=== PATIENT | male | born 1955 | race Caucasian/White ===

== ENCOUNTER 2021-08-17 12:21 | Emergency (ER) | payer OTHER, SELFPAY ==
--- NOTE | ~2021-08-17 | XR_ITS ---
EXAMINATION: XR CHEST CLINICAL INFORMATION: Chest pain. COMPARISON: Chest radiograph done on 07/03/2016. TECHNIQUE: 2 views of the chest were obtained. FINDINGS: Interval resolution of previously documented airspace disease at left upper lobe of the lung. Currently both lung flowers are clear except for pleural parenchymal stable disease at both lung apices. Cardiac mediastinal silhouette is within normal limit. No evidence of any pleural effusion or pneumothorax. Visualized upper abdomen is unremarkable. XR/XR chest 2V IMPRESSION: Interval resolution of left upper lobar airspace disease since 07/03/2016. No other significant change. Specifically, no radiographic evidence of pneumonia.
--- NOTE | 2021-08-17 12:31 | ECG_ITS ---
Test Reason : chest pain Blood Pressure : / mmHG Vent. Rate : 095 BPM Atrial Rate : 095 BPM P-R Int : 160 ms QRS Dur : 098 ms QT Int : 342 ms P-R-T Axes : 066 055 041 degrees QTc Int : 429 ms Normal sinus rhythm Possible Left atrial enlargement Incomplete right bundle branch block Borderline ECG When compared with ECG of 07-JAN-2012 19:40, Vent. rate has increased BY 35 BPM T wave amplitude has decreased in Anterior leads Referred By: Generic ED Physician Electronically Signed By:SOLANGE ELLIOTT
[2021-08-17 14:45] VITALS: BP 145/87; PULSE 98; RESP 20; TEMP 37.2; O2SAT 95; BMI 28.1
[2021-08-17 15:16] LABS: COVID-19 Test Positive (Negative); IDNOW Serial# 08D9AD1C
--- NOTE | 2021-08-17 18:30 | ED_ITS ---
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 Stefanie stahl tells me that his chest pain is centralized, nonradiating, dull, he tells me he can not tell that his chest or his lungs. He tells me this pain comes and goes. He is having a hard time describing the pain. has had subjective fevers, and chills. He tells me he has been feeling bad overall. He denies shortness of breath, headache, vision changes, dizziness, weakness. Patient is not vaccin ated against COVID-19. MD complaint: chest pain Onset (ago): day(s) (2) Timing of current episode: episodic Prior episodes: Yes Onset: during rest Pain location: substernal Pain radiation: none Severity: moderate Quality: tightness Relieving factors: nothing Exacerbating factors: nothing Context: recent illness (Currently COVID positive) Treatment prior to arrival: none Related Data Allergies Allergy/AdvReac Type Severity Reaction Status Date / Time No Known Allergies Allergy Unknown Unverified 04/21/20 17:19 aspirin Allergy Unknown Uncoded 05/05/19 00:00 Review of Systems Review of Systems: Constitutional : positive Fever, positive Chills, positive fatigue, positive Malaise ENT/Mouth : No sore throat, No runny nose Eyes: No Discharge Cardiovascular : positive Chest Pain, No SOB Respiratory : No Cough, No Sputum Gastrointestinal : No Nausea, No Vomiting, No Diarrhea Genitourinary : No Dysuria, No Urinary Frequency Musculoskeletal : positive Myalgia Skin : No rash Neuro : positive Headache Yes all other systems are reviewed and are negative PMFSH Past Medical History Attestation statement: The following information was validated with the patient. Source: old records reviewed and nursing notes reviewed Social History Social History Advance Directives: No Advance Directives Information Provided: No Physical Exam Vital Signs: Vital Signs: Last Vital Signs Temp 99 F 08/17/21 14:45 Pulse 98 08/17/21 14:45 Resp 20 08/17/21 14:45 BP 145/87 H 08/17/21 14:45 Pulse Ox 95 08/17/21 14:45 BMI result Body Mass Index 28.1 vss Appearance: Alert.? Oriented X3.? No acute distress.? Head: Normocephalic, atraumatic, no step-offs or deformities Eyes: Pupils equal, round and reactive to light.? ENT: Pharynx normal.? Neck: Normal inspection.? Neck supple.? CVS: Normal heart rate and rhythm.? Pulses normal.? Respiratory: No respiratory distress.? Breath sounds normal.? Abdomen: Soft and nontender.? Skin: Skin warm and dry.? Normal skin color.? Normal skin turgor.? Extremities: No lower extremity edema.? No calf ttp. 5/5 strength to bilateral upper and lower extremities Back: No midline tenderness, no C-spine tenderness, full range of motion, no CVA tenderness bilaterally Neuro: Oriented X 3.? No motor deficit.? No sensory deficit. Normal psqyme-[id number], [id number]-hnfg, normal tandem gait. Normal hand acls nurse Course Reevaluation(s) Reevaluation #1: Patient's EKG nonischemic. He is noted to be COVID positive. Labs and D-dimer pending. Patient's symptoms are likely secondary to COVID-19. Time: 18:36 Reevaluation #2: At this time 2nd troponin is pending. If his troponin is negative I suspect that patient can be discharged home. Patient's symptoms likely secondary to COVID-19. Sign out has been given to Dr. Martino. MDM - Chest Pain [facility] Narrative Medical decision making narrative: 1835 66 yo m presents to the emergency department with COVID like symptoms since yesterday. He also complains of chest pain, he is having a hard time describing this chest pain to me. He tells me does not know the chest or lungs. Not vaccinated . Physical examination benign. Patient's history and physical examination not consistent with posterior stroke, or cerebellar infarct. Medical Records Data Attestation: I reviewed the patient's medical records. Lab Data Attestation: I reviewed the patient's lab results. Result diagrams: 08/17/21 19:49 08/17/21 19:49 Labs: Lab Results 08/17/21 08/17/21 08/17/21 Range/Units 14:52 19:48 19:48 WBC (4.8-10.8) X10*3/uL RBC (4.60-5.80) X10*6/uL Hgb (14.0-18.0) g/dl Hct (42.0-52.0) % MCV (80.0-98.0) fL MCH (27.0-33.0) pg MCHC (31.0-36.0) g/dl RDW (11.0-16.0) % Plt Count (160-400) X10*3/uL MPV (9.4-12.4) fL Immature Gran % (Auto) (0.0-0.4) % Neut % (Auto) (45-73) % Lymph % (Auto) (20-40) % [place] % (Auto) (2-11) % Eos % (Auto) (0-4) % Baso % (Auto) (0-2) % Lymph # (Auto) (1.2-4.9) X10*3/uL [place] # (Auto) (0.1-1.2) X10*3/uL Eos # (Auto) (0.0-0.4) X10*3/uL Baso # (Auto) (0.0-0.2) X10*3/uL Abs Immat Gran (auto) (0.00-0.03) X10*3/uL Absolute Neuts (auto) (2.0-8.3) x10*3/uL Absolute Nucleated RBC (0.0-0.012) X10*3/uL Nucleated RBC % (auto) (0.0-0.2) /100WBC Smear Tech's Comments D-Dimer High Sensitivty < 150 NG/ML Sodium (135-145) mmol/L Potassium (3.3-5.1) mmol/L Chloride (96-108) mmol/L Carbon Dioxide (22-29) mmol/L Anion Gap (12-20) BUN (9-16) mg/dL Creatinine (0.5-1.4) mg/dL Estim Creat Clear Calc Estimated GFR Random Glucose (60-115) mg/dL Calcium (8.4-10.2) mg/dL Total Bilirubin (0.0-1.0) mg/dL AST (5-37) U/L ALT (0-40) U/L Alkaline Phosphatase (39-117) U/L Troponin I High Sens 7.6 (<3.5-35.0) ng/L Total Protein (6.5-8.0) g/dL Albumin (3.5-5.0) g/dL COVID-19 (BROCK) Positive A (Negative) COVID-19 Clin Com See Note 08/17/21 08/17/21 Range/Units 19:49 19:49 WBC 5.5 (4.8-10.8) X10*3/uL RBC 4.74 (4.60-5.80) X10*6/uL Hgb 13.9 L (14.0-18.0) g/dl Hct 41.8 L (42.0-52.0) % MCV 88.2 (80.0-98.0) fL MCH 29.3 (27.0-33.0) pg MCHC 33.3 (31.0-36.0) g/dl RDW 13.1 (11.0-16.0) % Plt Count 151 L (160-400) X10*3/uL MPV 9.5 (9.4-12.4) fL Immature Gran % (Auto) 0.4 (0.0-0.4) % Neut % (Auto) 60.5 (45-73) % Lymph % (Auto) 16.6 L (20-40) % [place] % (Auto) 22.1 H (2-11) % Eos % (Auto) 0.2 (0-4) % Baso % (Auto) 0.2 (0-2) % Lymph # (Auto) 0.9 L (1.2-4.9) X10*3/uL [place] # (Auto) 1.2 (0.1-1.2) X10*3/uL Eos # (Auto) 0.0 (0.0-0.4) X10*3/uL Baso # (Auto) 0.0 (0.0-0.2) X10*3/uL Abs Immat Gran (auto) 0.02 (0.00-0.03) X10*3/uL Absolute Neuts (auto) 3.3 (2.0-8.3) x10*3/uL Absolute Nucleated RBC 0.000 (0.0-0.012) X10*3/uL Nucleated RBC % (auto) 0.0 (0.0-0.2) /100WBC Smear Tech's Comments VERIFIED D-Dimer High Sensitivty NG/ML Sodium 135 (135-145) mmol/L Potassium 3.8 (3.3-5.1) mmol/L Chloride 101 (96-108) mmol/L Carbon Dioxide 26 (22-29) mmol/L Anion Gap 12 (12-20) BUN 18 H (9-16) mg/dL Creatinine 1.20 (0.5-1.4) mg/dL Estim Creat Clear Calc 60.2 Estimated GFR > 60 Random Glucose 93 (60-115) mg/dL Calcium 9.2 (8.4-10.2) mg/dL Total Bilirubin 0.6 (0.0-1.0) mg/dL AST 20 (5-37) U/L ALT 22 (0-40) U/L Alkaline Phosphatase 57 (39-117) U/L Troponin I High Sens (<3.5-35.0) ng/L Total Protein 7.7 (6.5-8.0) g/dL Albumin 4.4 (3.5-5.0) g/dL COVID-19 (BROCK) (Negative) COVID-19 Clin Com Imaging Data Chest x-ray: Attestation: I personally reviewed and interpreted this imaging study as follows: Radiologist's impression: XR/XR chest 2V IMPRESSION: Interval resolution of left upper lobar airspace disease since 07/03/2016. No other significant change. Specifically, no radiographic evidence of pneumonia. ECG Data ECG #1: Attestation: I personally reviewed and interpreted this ECG as follows: ECG interpretation date: 08/17/21 ECG interpretation time: 18:38 Prior ECG tracings: available for review Interpretation: Ventricular rate of 95, FL normal, QRS normal, QT/QTC normal. EKG shows normal sinus rhythm, possible left atrial enlargement, and an incomplete right bundle branch block. No ST elevations or inversions that are concerning with acute ischemia. When compared with EKG from January 07, 2012 no significant changes. Critical Care Time Critical Care Time Critical Care Time: No Discharge Plan Discharge Clinical Impression: COVID-19 Patient Disposition: Home, Self-Care Instructions: COVID-19 (Coronavirus Disease 2019) (ED) Additional Instructions: Take your medications as prescribed. If you were prescribed antibiotics today, it is important that you take your medication to their entirety, do not skip any doses, do not finish them early. Today you tested positive for COVID-19. Take Ibuprofen or Tylenol as needed for fevers or body aches. Quarantine for 7 days and ensure you wear a mask. After 7 days you should wear a mask for 3 days after that. Practice social distancing and good hand hygiene. Drink plenty of fluids. Follow-up with your primary care provider this week. Return to the emergency department with new or worsening symptoms. In case of emergency call 911 You can purchase a pulse oximeter from your local pharmacy or grocery store, and monitor your oxygen saturation if it goes below 94% you should return to the emergency department for further evaluation. If You Test Positive for COVID-19 (Isolate) Everyone, regardless of vaccination status. * Stay home for 5 days. * If you have no symptoms or your symptoms are resolving after 5 days, you can leave your house. * Continue to wear a mask around others for 5 additional days. If you have a fever, continue to stay home until your fever resolves. If You Were Exposed to Someone with COVID-19 (Quarantine) If you: Have been boosted OR Completed the primary series of Pfizer or Moderna vaccine within the last 6 months OR Completed the primary series of J&J vaccine within the last 2 months * Wear a mask around others for 10 days. * Test on day 5, if possible. If you develop symptoms get a test and stay home. If you: Completed the primary series of Pfizer or Moderna vaccine over 6?months ago and are not boosted OR Completed the primary series of J&J over 2 months ago and are not boosted OR Are unvaccinated * Stay home for 5 days. After that continue to wear a mask around others for 5 additional days. * If you can?t quarantine you must wear a mask for 10 days. * Test on day 5 if possible. If you develop symptoms get a test and stay home Referrals: Halima Maya MD [Primary Care Provider] - 2 days Stand Alone Forms: Work/School Release
[2021-08-17 19:58] LABS: Basophils Percent Auto 0.2 % (0-2); Eosinophils Percent Auto 0.2 % (0-4); Hematocrit 41.8 % (42.0-52.0); Hemoglobin 13.9 g/dl (14.0-18.0); Imm Gran Abs Auto 0.02 X10*3/uL (0.00-0.03); Imm Gran Pct Auto 0.4 % (0.0-0.4); Lymphocytes Absolute Auto 0.9 X10*3/uL (1.2-4.9); Lymphocytes Percent Auto 16.6 % (20-40); MANUAL DIFF FLAG SCAN; Mean Corpuscular HGB Conc 33.3 g/dl (31.0-36.0); Mean Corpuscular Hemoglobin 29.3 pg (27.0-33.0); Mean Corpuscular Volume 88.2 fL (80.0-98.0); Mean Platelet Volume 9.5 fL (9.4-12.4); Monocytes Absolute Auto 1.2 X10*3/uL (0.1-1.2); Monocytes Percent Auto 22.1 % (2-11); Neutrophils Absolute Auto 3.3 x10*3/uL (2.0-8.3); Neutrophils Percent Auto 60.5 % (45-73); Platelet Count 151 X10*3/uL (160-400); Red Blood Count 4.74 X10*6/uL (4.60-5.80); Red Cell Distribution Width 13.1 % (11.0-16.0); SCAN SMEAR FLAG 1; White Blood Count 5.5 X10*3/uL (4.8-10.8)
[2021-08-17 20:11] LABS: Alanine Aminotransferase 22 U/L (0-40); Albumin Level 4.4 g/dL (3.5-5.0); Alkaline Phosphatase 57 U/L (39-117); Anion Gap 12 (12-20); Aspartate Amino Transferase 20 U/L (5-37); Bilirubin Total 0.6 mg/dL (0.0-1.0); Blood Urea Nitrogen 18 mg/dL (9-16); Calcium 9.2 mg/dL (8.4-10.2); Carbon Dioxide 26 mmol/L (22-29); Chloride 101 mmol/L (96-108); Creatinine Clr Calc Pharmacy 60.2; Estimated Glomerular Filt Rate > 60; Glucose Random 93 mg/dL (60-115); Potassium 3.8 mmol/L (3.3-5.1); Sodium 135 mmol/L (135-145); Total Protein 7.7 g/dL (6.5-8.0)
[2021-08-17 20:14] LABS: Troponin-I High Sensitivity 7.6 ng/L (<3.5-35.0)
[2021-08-17 20:20] LABS: SLIDE REVIEW VERIFIED
[2021-08-17 20:23] LABS: D Dimer High Sensitivity < 150 NG/ML
[2021-08-17 21:48] VITALS: BP 139/90; PULSE 94; RESP 16; TEMP 37.1; O2SAT 94
[2021-08-17 22:18] LABS: Troponin-I High Sensitivity 9.5 ng/L (<3.5-35.0)
[2021-08-18 00:42] VITALS: BP 160/83; PULSE 103; RESP 17; TEMP 36.9; O2SAT 92
== END 2021-08-18 03:08 | disposition home or self-care (01) ==
PROVIDERS: Physician Assistant; Emergency Provider Internal Medicine; PCP Internal Medicine
DX: U07.1 COVID-19 (principal)
CPT/HCPCS: 36415; 71046; 80053; 84484; 85025; 85379; 87635; 93005; 99283; 99284

== ENCOUNTER 2021-10-05 08:09 | Outpatient (REF) | payer OTHER, SELFPAY ==
[2021-10-05 09:39] LABS: Cholesterol 191 mg/dL; HDL Cholesterol 67 mg/dL; LDL Cholesterol Calculated 114 mg/dl; Triglycerides 51 mg/dL
[2021-10-05 09:54] LABS: Prostate Specific Antigen Scr 1.87 ng/mL (<0.05-4.0); TSH reflex Free T4 1.15 uIU/mL (0.32-4.0)
[2021-10-05 10:17] LABS: Folate 17.5 ng/mL (> or = 4.0); Vitamin B12 678 pg/mL (200-900)
[2021-10-10 15:06] LABS: Testosterone, Free 56.4 pg/mL (35.0-155.0); Testosterone, Total 714 ng/dL (250-1100)
== END 2021-10-05 08:10 | disposition home or self-care (01) ==
LOC: HO.LAB 08:09
PROVIDERS: PCP Nurse Practitioner Family; Visit Provider Nurse Practitioner Family
DX: E78.00 Pure hypercholesterolemia, unspecified (principal); R07.9 Chest pain, unspecified; I10 Essential (primary) hypertension; R53.83 Other fatigue; Z12.5 Encounter for screening for malignant neoplasm of prostate
CPT/HCPCS: 36415; 80061; 82607; 82746; 84153; 84402; 84403; 84443

== ENCOUNTER → 2021-10-26 13:25 | Outpatient (BNVA) | payer OTHER, SELFPAY | PROVIDERS: PCP Nurse Practitioner Family; Referring Provider Nurse Practitioner Family; Visit Provider Internal Medicine | DX: I10 Essential (primary) hypertension (principal); R07.9 Chest pain, unspecified | CPT/HCPCS: 99202; 99212 ==

== ENCOUNTER 2022-03-12 12:00 | Emergency (ER) | payer OTHER, SELFPAY ==
[2022-03-12 13:02] VITALS: BP 125/81; PULSE 84; RESP 16; TEMP 36.3; O2SAT 96; BMI 28.2
== END 2022-03-12 14:33 | disposition left against medical advice (07) ==
PROVIDERS: Emergency Provider Emergency Medicine; PCP Nurse Practitioner Family
DX: T63.441A Toxic effect of venom of bees, accidental (unintentional), initial encounter (principal); Y92.9 Unspecified place or not applicable
CPT/HCPCS: 99281

== ENCOUNTER → 2023-10-17 08:58 | Outpatient (BNVA) | payer SELFPAY | PROVIDERS: PCP Nurse Practitioner Family; Visit Provider Physician Assistant Medical | DX: Z02.79 Encounter for issue of other medical certificate (principal) ==

== ENCOUNTER 2024-06-08 14:03 | Outpatient (AMB) | payer OTHER, SELFPAY ==
[2024-06-08 14:09] VITALS: BP 148/90; PULSE 91; O2SAT 97; BMI 29.1
--- NOTE | 2024-06-08 14:09 | A.OFFPC_ITS ---
Vital Signs 06/08/24 14:09 06/08/24 14:37 Height 5 ft 9.29 in Weight 199 lb BMI 29.1 BP 148/90 H 130/82 Blood Pressure Location Lt brachial Lt brachial Position Sitting Sitting Pulse 91 Pulse Source Pulse Oximeter Pulse Oximetry (%) 97 Oxygen Delivery Method Room Air Intake Visit Reasons: blood in urine Coal Digger Required: No Allergies No Known Allergies Allergy (Unknown, Verified 06/08/24 14:12) Medication List - Last Reconciled 06/08/24 by Denisa Fuentes PA-C amlodipine 5 mg PO DAILY multivitamin (Daily Multi-Vitamin tablet) 1 tab PO DAILY Tobacco use date assessed: 06/08/24 Fall risk assessment: No Falls in past year Last assessed Fall Risk: 06/08/24 Dental Screening Dental Screen Date: 06/08/24 HPI blood in urine HPI Details 69 year old male coming to the office fo r acute problem. Italian certified court interpreter was used for the duration of this visit. Patient states 2 days ago he was having blood in the urine which lasted for that day in spontaneously resolved. He did have suprapubic pain with the blood in the urine and is no longer having any pain. He has no other acute concerns today. [facility] Surgical History History of ankle surgery History of gastric surgery Social History Housing: House Alcohol intake: never Patient Tobacco Use Status: Former Tobacco user e-Cigarette/Vaping Use: Never Used Second Hand Smoke Exposure: No service: No Current occupational status: retired Cognitive needs: No Hearing needs: No Vision needs: Yes (glasses) Questionnaire Thrive Questionnaire Date Thrive assessed: 10/04/21 AUDIT C Alcohol Use Questionnaire (AUDIT-C) 1. How often do you have a drink containing alcohol?: Never Total Score: 0 JUANCHO-7 AMB Questionnaire JUANCHO-7 Date JUANCHO - 7 assessed: 10/04/21 Source: Developed by Drs. Piotr Guzman, Prerna Saavedra, Migue Marin and colleagues, with an educational mello from [employer]. Review of Systems Const Denies body aches, Denies chills and Denies fever(s) Eyes Reports no additional complaints ENT Reports no additional complaints Card Denies chest pain, Denies syncope, Denies leg edema, Denies lightheadedness and Denies dyspnea Resp Denies dyspnea GI Denies abdominal pain, Denies constipation, Denies diarrhea, Denies nausea and Denies vomiting Reports as per HPI Musc Reports no additional complaints Skin/Breast Reports system reviewed and no additional complaints, except as documented Neuro Reports no additional complaints and Denies syncope Physical exam (Primary Care) Vital Signs: Last Vital Signs Pulse 91 06/08/24 14:09 BP 148/90 H 06/08/24 14:09 Pulse Ox 97 06/08/24 14:09 Oxygen Delivery Method Room Air 06/08/24 14:09 BMI result Body Mass Index 29.1 Tobacco/Smoking Status: Tobacco use Status Tobacco use date assessed 06/08/24 06/08/24 14:09 Patient Tobacco Use Status Former Tobacco user 06/08/24 14:09 e-Cigarette/Vaping Use Never Used 06/08/24 14:09 Thrive Assessment: Date of Thrive Assessment Date Thrive assessed 10/04/21 06/08/24 14:09 Const General: cooperative, healthy appearing, comfortable and no acute distress Orientation/consciousness: patient oriented x3 HENMT Head: Yes normocephalic Ears: hearing grossly normal bilaterally General nose exam: Normal external nose present Eyes General: appearance normal, both eyes and all related structures Conjunctivae: conjunctivae normal Neck Neck: Yes full ROM and Yes no lymphadenopathy Resp Effort & Inspection: normal respiratory effort Auscultation: clear to auscultation bilaterally, no crackles, no rales, no rhonchi and no wheezes Cardio Rate: regular rate Rhythm: regular rhythm GI Palpation (GI): Soft to palpation, not firm, nontender, no guarding and not rigid General: Yes no CVA tenderness Back/Spine/Pelvis Back: no CVA tenderness Skin General skin exam: no rashes or lesions noted Neuro General: patient oriented x3 Gait exam (Neuro): Normal gait present Extrem General: Yes normal to inspection, Yes full ROM and No edema Psych Affect: normal affect Attitude: cooperative Insight: Good insight present (Psych) Judgement: Good judgement present (Psych) Results AMB Urinalysis, Automated UA Leukoctes 0 Selina/uL Last Edit by SILVIA Mcbride on 06/08/24 14:28 UA Nitrite Negative Last Edit by SILVIA Mcbride on 06/08/24 14:28 UA Urobilinogen 0.2 mg/dL Last Edit by Alejandra Vivas SILVIA on 06/08/24 14:28 UA Protein 0 mg/dL Last Edit by Alejandra Vivas A on 06/08/24 14:28 UA pH 6.0 Last Edit by Alejandra Vivas [facility] on 06/08/24 14:28 UA Blood 0 Vikas/uL Last Edit by Alejandra Vivas A on 06/08/24 14:28 UA Specific [place] 1.020 Last Edit by Alejandra Vivas [place] on 06/08/24 14:28 UA Ketone Negative Last Edit by Alejandra Vivas [place] on 06/08/24 14:28 UA Bilirubin 0 mg/dL Last Edit by Alejandra Vivas [facility] on 06/08/24 14:28 UA Glucose 0 mg/dL Last Edit by Alejandra Vivas [place] on 06/08/24 14:28 Coding Level of Care Code Est Pt Level 3 (88572) Diagnoses Essential hypertension I10 Hematuria R31.9 Encounter for colorectal cancer screening Z12.11; Z12.12 Assessment & Plan Assessment & Plan (1) Essential hypertension: Code(s): I10 - Essential (primary) hypertension Category: Medical Plan: Patient not currently on blood pressure management was previously on amlodipine 5 mg. On exam blood pressure was 148/90 and 130/82 when retaken. Advised patient to take blood pressures at home and reach out to the office if values are over 140/90. (2) Hematuria: Code(s): R31.9 - Hematuria, unspecified Category: Medical Plan: Hematuria has resolved at this time. Advised patient to continue to monitor her symptoms and if it returns to reach out to the office for evaluation. Urinalysis today did not show evidence of infection or blood in the urine. (3) Encounter for colorectal cancer screening: Code(s): Z12.11 - Encounter for screening for malignant neoplasm of colon; Z12.12 - Encounter for screening for malignant neoplasm of rectum Category: Medical Plan: Patient is not up-to-date with routine colonoscopy. Referral was placed today. Plan Ordered for updated blood work and advised patient to follow up in 3 months for annual exam. This note was constructed using voice recognition software. While every effort has been made to ensure accuracy and sales planner, still areas may have been included sometimes these areas may affect the content or meeting of the given symptoms. Total time spent caring for the patient today was 25 minutes. This includes time spent before the visit reviewing the chart, time spent during the visit, and time spent after the visit and documentation. Orders: Orders Free T4 (Free Thyroxine) Today Z00.00 - Encounter for general adult medical examination without abnormal findings Lipid Panel Today Z00.00 - Encounter for general adult medical examination without abnormal findings Vitamin D 25-OH (D2 and D3) Today Z00.00 - Encounter for general adult medical examination without abnormal findings AMB Urinalysis Automated Today R31.9 - Hematuria, unspecified Complete Blood Count Auto Diff Today Z00.00 - Encounter for general adult medical examination without abnormal findings Comprehensive Met. Panel Today Z00.00 - Encounter for general adult medical examination without abnormal findings PSA, Ultra Sensitive Today Z00.00 - Encounter for general adult medical examination without abnormal findings TSH reflex Free T4 Today Z00.00 - Encounter for general adult medical examination without abnormal findings Vitamin B12 and Folate Today Z00.00 - Encounter for general adult medical examination without abnormal findings Referrals Gastroenterology Referral Z12.11 - Encounter for screening for malignant neoplasm of colon Medications: Discontinued amlodipine Discontinued Reason: Patient no longer taking 5 mg PO DAILY 90 tabs 0RF
[2024-06-08 14:37] VITALS: BP 130/82
== END 2024-06-08 14:47 | disposition home or self-care (01) ==
LOC: HO.HMCH 14:03
DX: I10 Essential (primary) hypertension (principal); R31.9 Hematuria, unspecified; Z12.11 Encounter for screening for malignant neoplasm of colon; Z12.12 Encounter for screening for malignant neoplasm of rectum

== ENCOUNTER → 2024-06-08 14:03 | Outpatient (BNVA) | payer OTHER, SELFPAY | DX: R31.9 Hematuria, unspecified (principal); I10 Essential (primary) hypertension | CPT/HCPCS: 81003; 99212 ==

== ENCOUNTER 2024-06-09 08:35 | Outpatient (REF) | payer OTHER, SELFPAY ==
[2024-06-09 09:20] LABS: MANUAL DIFF FLAG NO
[2024-06-09 09:21] LABS: Basophils Percent Auto 0.5 % (0-2); Eosinophils Absolute Auto 0.2 X10*3/uL (0.0-0.4); Eosinophils Percent Auto 4.6 % (0-4); Hematocrit 44.8 % (42.0-52.0); Hemoglobin 15.1 g/dl (14.0-18.0); Imm Gran Abs Auto 0.03 X10*3/uL (0.00-0.03); Imm Gran Pct Auto 0.7 % (0.0-0.4); Lymphocytes Absolute Auto 1.2 X10*3/uL (1.2-4.9); Lymphocytes Percent Auto 27.4 % (20-40); Mean Corpuscular HGB Conc 33.7 g/dl (31.0-36.0); Mean Corpuscular Hemoglobin 29.5 pg (27.0-33.0); Mean Corpuscular Volume 87.7 fL (80.0-98.0); Mean Platelet Volume 9.4 fL (9.4-12.4); Monocytes Absolute Auto 0.6 X10*3/uL (0.1-1.2); Monocytes Percent Auto 14.3 % (2-11); Neutrophils Absolute Auto 2.3 x10*3/uL (2.0-8.3); Neutrophils Percent Auto 52.5 % (45-73); Platelet Count 202 X10*3/uL (160-400); Red Blood Count 5.11 X10*6/uL (4.60-5.80); Red Cell Distribution Width 12.9 % (11.0-16.0); White Blood Count 4.3 X10*3/uL (4.8-10.8)
[2024-06-09 09:46] LABS: Alanine Aminotransferase 21 U/L (0-40); Albumin Level 4.2 g/dL (3.5-5.0); Alkaline Phosphatase 48 U/L (39-117); Anion Gap 11 (12-20); Aspartate Amino Transferase 23 U/L (5-37); Bilirubin Total 0.6 mg/dL (0.0-1.0); Blood Urea Nitrogen 15 mg/dL (9-16); Calcium 8.9 mg/dL (8.4-10.2); Carbon Dioxide 21 mmol/L (22-29); Chloride 111 mmol/L (96-108); Cholesterol 155 mg/dL (<200); Estimated Glomerular Filt Rate > 60; Glucose Random 92 mg/dL (60-115); HDL Cholesterol 64 mg/dL (>40); LDL Cholesterol Calculated 85 mg/dL (<100); Potassium 4.3 mmol/L (3.3-5.1); Sodium 139 mmol/L (135-145); Total Protein 7.2 g/dL (6.5-8.0); Triglycerides 30 mg/dL (<150)
[2024-06-09 10:01] LABS: Free T4 (Free Thyroxine) 0.99 ng/dL (0.71-1.85); TSH reflex Free T4 1.12 uIU/mL (0.32-4.0)
[2024-06-09 11:34] LABS: Folate 8.7 ng/mL (> or = 4.0); Vitamin B12 550 pg/mL (200-900)
[2024-06-17 14:38] LABS: Vitamin D 25-OH, D2 <4 ng/mL; Vitamin D 25-OH, D3 41 ng/mL; Vitamin D 25-OH, Total 41 ng/mL (30-100)
[2024-06-19 14:33] LABS: PSA, Ultra Sensitive 1.14 ng/mL
== END 2024-06-09 08:36 | disposition home or self-care (01) ==
LOC: HO.LAB 08:35
PROVIDERS: PCP Physician Assistant
DX: Z00.00 Encounter for general adult medical examination without abnormal findings (principal); Z12.5 Encounter for screening for malignant neoplasm of prostate; Z13.89 Encounter for screening for other disorder
CPT/HCPCS: 36415; 80053; 80061; 82306; 82607; 82746; 84153; 84439; 84443; 85025

== ENCOUNTER 2024-09-14 09:24 | Outpatient (AMB) | payer MEDICARE, SELFPAY ==
[2024-09-14 09:29] VITALS: BP 140/74; PULSE 70; TEMP 36.1; O2SAT 96; BMI 29.9
--- NOTE | 2024-09-14 09:34 | A.OFFVIS_ITS ---
Intake Vital Signs 09/14/24 09:29 Height 5 ft 9.29 in Weight 204 lb 4 oz BMI 29.9 BP 140/74 H Blood Pressure Location Lt brachial Position Sitting Pulse 70 Pulse Source Pulse Oximeter Temp 96.9 F Temp Source Skin Pulse Oximetry (%) 96 Oxygen Delivery Method Room Air Intake Visit Reasons: physical Manager Of Operations Required: Yes Manager Of Operations Services: Manager Of Operations Present Woodenware Assembler: Woodenware Assembler offered & declined Accompanied by: Self / Same As Patient Allergies No Known Allergies Allergy (Unknown, Verified 09/14/24 09:56) Medication List - Last Reconciled 09/14/24 by Denisa Fuentes PA-C multivitamin (Daily Multi-Vitamin tablet) 1 tab PO DAILY HPI physical HPI Details 69-year-old male with past medical histo ry of hypertension last seen 06/2024 coming in for annual exam. Visual impairment noted, necessitating updated corrective lenses; the patient acknowledges changes in insurance have interrupted continuity of eye care. Previously experienced foot pain related to an old tendon injury, which resolved spontaneously without further medical intervention about a month ago. [place] islander card lacer jacquard [id number] Fiona was used for the duration of this visit. Patient initially refused colonoscopy however states he would like to have it done at the end of this year. [facility] Surgical History History of gastric surgery History of ankle surgery Social History Housing: House Alcohol intake: never Patient Tobacco Use Status: Former Tobacco user e-Cigarette/Vaping Use: Never Used Second Hand Smoke Exposure: No service: No Current occupational status: retired Cognitive needs: No Hearing needs: No Vision needs: Yes (glasses) Questionnaire Medicare Wellness Checkup [age] What gender do you identify with?: male During the past 4 weeks, how much have you been bothered by emotional problems such as feeling anxious, depressed, irritable, sad or downhearted, and blue?: not at all During the past 4 weeks, has your physical & emotional health limited your social activities with family, friends, neighbors, or groups?: not at all During the past 4 weeks, how much bodily pain have you generally had?: no pain During the past 4 weeks, was someone available to help you if you needed & wanted help?: no, not at all During the past 4 weeks, what was the hardest physical activity you could do for at least 2 minutes?: moderate Can you go shopping for groceries or clothes without someone's help?: Yes Can you prepare your own meals?: Yes Can you do your housework without help?: Yes Because of any health problems, do you need the help of another person with your personal care needs such as eating, bathing, dressing or getting around the house?: No Can you handle your own money without help?: Yes During the past 4 weeks, how would you rate your health in general?: good During the past 4 weeks how have things been going for you?: pretty well Are you having difficulties driving your car?: no Do you always fasten your seat belt when you are in a car?: yes, usually During past 4 weeks, have you been bothered by the following: never: Falling or dizzy when standing up, Sexual problems?, Trouble eating well?, Teeth or denture problems?, Problems using the telephone? and Tiredness or fatigue? Have you fallen 2 or more times in the past year?: No Are you afraid of falling?: No Are you a smoker?: no During the past 4 weeks, how many drinks of wine, beer, or other alcoholic beverages did you have?: no alcohol at all Do you exercise for about 20 minutes 3 or more times a week?: no, I usually do not exercise this much Have you been given information to help with the following?: no: Hazards in your house that might hurt you? and no: Keeping track of your medications? How often do you have trouble taking medicines the way you have been told to take them?: I do not have to take medicine How confident are you that you can control & manage most of your health problems?: very confident What is your race?: Other Thrive Questionnaire Date Thrive assessed: 09/14/24 I am a: Patient What is your living situation today?: I have a steady place to live Within the past 12 months, did the food you bought not last and you didn't have the money to get more?: Never true Within the past 12 months, did you worry whether your food would run out before you got money to buy more?: Never true Do you have trouble paying for medicines?: No Do you have trouble getting transportation to medical appointments?: No Do you have trouble paying your heating and electricity bill?: No Do you have trouble taking care of your child, family member or friend?: No Do you have trouble with day-to-day activities such as bathing, preparing meals, shopping, managing finances, etc.?: No Are you currently unemployed and looking for a job?: No Are you interested in more education?: No Please select the resources that you would like help with: None Currently or been in a relationship where the following occur: No concerns reported THRIVE Score: 0 JUANCHO-7 AMB Questionnaire JUANCHO-7 Date JUANCHO - 7 assessed: 09/14/24 Feeling nervous, anxious, or on edge: 0 = Not at all Not being able to stop or control worryin = Not at all Worrying too much about different things: 0 = Not at all Trouble relaxin = Not at all Being so restless that it is hard to sit still: 0 = Not at all Becoming easily annoyed or irritable: 0 = Not at all Feeling afraid as if something awful might happen: 0 = Not at all Total JUANCHO-7 score (0-4 normal; 5-9 mild; 10-14 moderate; 15-21 severe): 0 Source: Developed by Drs. Piotr Guzman, Prerna Saavedra, Migue Marin and colleagues, with an educational mello from [employer]. AUDIT C Alcohol Use Questionnaire (AUDIT-C) 1. How often do you have a drink containing alcohol?: Never Total Score: 0 Review of Systems Const Denies body aches, Denies chills, Denies fever(s), Denies headache(s) and Denies poor appetite Eyes Reports no additional complaints and Reports requires corrective lenses ENT Denies dysphagia, Denies dizziness, Denies headache(s) and Denies odynophagia Card Denies chest pain, Denies syncope, Denies edema, Denies irregular heart rhythm, Denies lightheadedness and Denies dyspnea Resp Denies cough and Denies dyspnea GI Denies abdominal pain, Denies constipation, Denies dysphagia, Denies diarrhea, Denies nausea, Denies odynophagia and Denies vomiting Reports no additional complaints Musc Reports no additional complaints and Denies abnormal gait Skin/Breast Reports system reviewed and no additional complaints, except as documented Neuro Denies abnormal gait, Denies dizziness, Denies syncope and Denies headache(s) Psych Reports no additional complaints Physical Exam Vital Signs: Last Vital Signs Temp 96.9 F 09/14/24 09:29 Pulse 70 09/14/24 09:29 BP 140/74 H 09/14/24 09:29 Pulse Ox 96 09/14/24 09:29 Oxygen Delivery Method Room Air 09/14/24 09:29 BMI result Body Mass Index 29.9 Const General: cooperative, healthy appearing, comfortable and no acute distress Orientation/consciousness: patient oriented x3 HEENT Head: Yes normocephalic Ears: hearing grossly normal bilaterally, external ears normal, TM's normal bilaterally and EAC's normal General nose exam: Normal external nose present Face and sinus: Yes normal facial exam and Yes sinuses nontender Mouth: Normal oral and palatal mucosa present and tongue normal Throat: Yes posterior oropharynx normal Eyes General: appearance normal, both eyes and all related structures Conjunctivae: conjunctivae normal Pupils: Equal, round and reactive pupils present EOM: EOMs intact bilaterally and No Nystagmus present Neck Neck: Yes normal visual inspection, Yes full ROM and Yes no lymphadenopathy Chest Chest palpation & inspection: normal inspection of the chest Resp Effort & Inspection: normal respiratory effort Auscultation: clear to auscultation bilaterally, no crackles, no rales, no rhonchi, no wheezes and breath sounds present Cardio Rate: regular rate Rhythm: regular rhythm Peripheral pulses: radial pulses present and dorsalis pedis present GI Inspection: Yes normal to inspection and No Abdominal wall edema Palpation (GI): Soft to palpation, not firm and nontender Auscultation: normal bowel sounds Rectal Exam - Male: Yes deferred General: Yes no CVA tenderness Back/Spine/Pelvis Back: no CVA tenderness Skin General skin exam: no rashes or lesions noted Neuro General: patient oriented x3 Cranial nerves: Yes Equal, round and reactive pupils present, Yes Midline tongue present, Yes Ability to bilaterally elevate shoulders present and No Nystagmus present Gait exam (Neuro): Normal gait present Extrem General: Yes normal to inspection, Yes full ROM, No no pedal edema and No edema Psych Speech and movement: Normal speech and movement present Affect: normal affect Insight: Good insight present (Psych) Judgement: Good judgement present (Psych) Assessment & Plan Assessment & Plan (1) Essential hypertension: Code(s): I10 - Essential (primary) hypertension Plan: Continue on current blood pressure medication. Avoid salt intake and encourage healthy diet and regular exercise. Blood pressure improve when retaken today (2) Annual wellness visit: Code(s): Z00.00 - Encounter for general adult medical examination without abnormal findings Plan: Patient is not up-to-date on all recommended routine screenings and vaccinations for his age. He like to have the colonoscopy done at the end of this year. He is declining any additional vaccines today. MOLST form was completed today in the office and scanned into patient's chart. Healthcare proxy form was given to the patient to be reviewed at home. Blood work is up-to-date. Plan to follow up in 1 year or sooner if new problems arise. [place] of care was reviewed with patient patient was provided with a written screening schedule. (3) Colon cancer screening declined: Code(s): Z53.20 - Procedure and treatment not carried out because of patient's decision for unspecified reasons Plan: Patient initially declining colon cancer screening states he would like to have it done at the end of this year. Message sent to GI office to have patient put on reminder list. (4) Decreased vision: Code(s): H54.7 - Unspecified visual loss Plan: Patient complaining of decreased vision states he needs updated corrective lenses. Referral placed to optometry. Plan This note was constructed using voice recognition software. While every effort has been made to ensure accuracy and washer and capper machine operator, still areas may have been included sometimes these areas may affect the content or meeting of the given symptoms. Total time spent caring for the patient today was 30 minutes. This includes time spent before the visit reviewing the chart, time spent during the visit, and time spent after the visit and documentation. Orders: Referrals Optometry Referral H54.7 - Unspecified visual loss Coding Level of Care Code Medicare Subsequent (G0439) Diagnoses Essential hypertension I10 Annual wellness visit Z00.00 Colon cancer screening declined Z53.20 Decreased vision H54.7 CPT Codes Advance Care Planning - Time spent: 1-15 minutes, not on file ([id number]) Advance Care Planning Advance Care Planning discussion: Completed/Scanned Date of discussion: 09/14/24 Who was present: Patient Forms completed: Health Care Proxy and MOLST Time spent: 1-15 minutes, not on file Actual minutes spent: 10 Did not discuss due to Cultural/Spiritual beliefs: No
== END 2024-09-14 10:27 | disposition home or self-care (01) ==
DX: Z00.00 Encounter for general adult medical examination without abnormal findings (principal); I10 Essential (primary) hypertension; Z53.20 Procedure and treatment not carried out because of patient's decision for unspecified reasons; H54.7 Unspecified visual loss

== ENCOUNTER 2024-10-26 16:12 | Emergency (ER) | payer MEDICARE, SELFPAY ==
--- NOTE | ~2024-10-26 | CT_ITS ---
CLINICAL HISTORY: RLQ ABD pain, TTP CT abdomen and pelvis with contrast Comparison: None Findings: No consolidation or effusion. Unremarkable gallbladder and solid organs. No urolithiasis. No bowel obstruction, pneumoperitoneum, or pneumatosis. Normal appendix. Prostate is enlarged. Bladder is thin walled without filling defect. Distal ureters are nondilated. No fluid collections or adenopathy. No vascular dilation. No acute fracture. Lower lumbar spondylosis. IMPRESSION: No acute findings. Normal appendix. No obstructive uropathy or bowel obstruction. This document has been electronically signed by: Gayathri Yun MD on 10/26/2024 21:13:22
[2024-10-26 16:54] VITALS: BP 138/82; PULSE 100; RESP 16; TEMP 36.7; O2SAT 97; BMI 31.5
--- NOTE | 2024-10-26 16:57 | ED_ITS ---
HPI - General Adult General Chief complaint: Abdominal Pain Stated complaint: lower abd pain Time Seen by Provider: 10/26/24 19:08 Source: patient Mode of arrival: ambulatory Limitations: no limitations and language barrier (Pulse speaking deaf interpreter utilized) History of Present Illness ED Provider: ora FITTING ROOM ASSOCIATE HPI narrative: Patient is a 69-year-old male who presents to the emergency department for evaluation of right lower quadrant abdominal pain constant over the past 2 days with the associated bloating/full sensation. Endorses an associated loss of appetite. Reports over the past week he has lost approximately 10 lb. He denies associated fevers, chills, chest pain, shortness of breath, nausea, vomiting, diarrhea or constipation, hematochezia or melena, genitourinary symptoms, history of malignancy, testicular pain or swelling, urethral discharge, night sweats. Related Data Home Medications ?Medication ?Instructions ?Recorded ?Confirmed multivitamin (Daily Multi-Vitamin 1 tab PO DAILY 10/04/21 09/14/24 tablet) Allergies Allergy/AdvReac Type Severity Reaction Status Date / Time No Known Allergies Allergy Unknown Verified 10/26/24 17:03 Review of Systems 2 Review of Systems: Yes all other systems are reviewed and are negative PMFSH Past Medical History Attestation statement: The following information was validated with the patient. Source: old records reviewed Surgical History History of gastric surgery History of ankle surgery Social History Social History Housing: House Alcohol intake: never Patient Tobacco Use Status: Former Tobacco user e-Cigarette/Vaping Use: Never Used Second Hand Smoke Exposure: No Advance Directives: No Advance Directives Information Provided: Yes service: No Current occupational status: retired Cognitive needs: No Hearing needs: No Vision needs: Yes (glasses) Physical Exam ED Vital Signs: Vital Signs - 24 hr 10/26/24 16:54 10/26/24 18:40 Temperature 98.0 F 98.3 F Pulse Rate 100 72 Respiratory Rate 16 18 Blood Pressure 138/82 125/84 Pulse Oximetry 97 99 Oxygen Delivery Method Room Air Room Air BMI result Body Mass Index 31.5 Appearance: Alert.?Oriented to person, place and time. No acute distress.?Normal affect.?? Neck: Normal inspection.? Neck supple.?? CVS: Heart sounds normal. Normal heart rate and rhythm.? Pulses normal.?? Respiratory: No respiratory distress.? Lung sounds clear to auscultation bilaterally?? Abdomen: Soft with right lower quadrant tenderness upon palpation Negative psoas sign. Negative Rovsing sign. Negative [place] sign. No CVAT. Normoactive bowel sounds. No pulsatile mass.?? Skin: Skin warm and dry.? Normal skin color.? Extremities: No lower extremity edema.? Neuro: Moves all extremities spontaneously. Sensation intact bilaterally. Ambulates with normal steady gait. Course Course Course Narrative: This is a rapid medical exam performed by Judy Hinojosa PA-C. The patient is 69-year-old male with a history of hypertension who presents with right lower quadrant pain x2 days. Patient states he feels full, with poor p.o. intake. Denies nausea, vomiting, diarrhea. On exam, he is guarding with palpation of the right lower quadrant. We will be screening basic labs, I foresee him requiring a CT scan of the abdomen. The patient was stable and can return to the waiting room pending his full medical assessment. Reevaluation(s) Reevaluation #1: CT of the abdomen and pelvis without acute pathology, normal appendix, no obstructive uropathy. Reviewed these findings with patient, advised outpatient follow-up with primary care doctor, stay well hydrated, small frequent meals, strict return precautions. All questions answered Medications Administered Discontinued Medications Generic Name Dose Route Start Last Admin Trade Name Freq PRN Reason Stop Dose Admin Sodium Chloride 1,000 mls @ 999 mls/hr 10/26/24 19:45 10/26/24 19:53 Ns IV 10/26/24 20:45 999 mls/hr .Q1H1M ALEX Administration Iohexol 85 ml 10/26/24 20:40 10/26/24 20:40 Iohexol 350 Mg/Ml 100 Ml Infus..Btl IV 10/26/24 20:41 85 ml ONCE ONE Administration Medical Decision Making Medical Decision Making MDM Narrative: Patient is a 69-year-old male with no reported past medical history who presents emergency department for evaluation of 2 days with right lower quadrant abdominal pain on examination has tenderness upon palpation, no rigidity or guarding, no percussive tenderness. He is without signs of systemic toxicity afebrile without tachycardia or hypotension. Obtaining CT of the abdomen and pelvis to evaluate for possible acute appendicitis, enteritis, nephrolithiasis with colic, hydronephrosis, pyelonephritis. No tenderness of the left lower quadrant nor associated nausea, vomiting, diarrhea, constipation, hematochezia or melena to suggest diverticulitis or GI bleed. No appreciable hernia to suggest strangulation/incarceration. Lower suspicion for bowel obstruction. No distention or rigidity to suggest GI perforation. No associated genitourinary symptoms to suggest UTI/pyelonephritis, renal colic, hydronephrosis. no reported testicular pain or swelling, low clinical suspicion for testicular torsion. Differential Diagnosis Differential Diagnoses: The differential diagnosis associated with the presentation includes (See narrative above) Admission/Observation Consideration of admission/observation: Escalation of care including admission/observation considered (See narrative above ) Lab Data MDM Lab Attestation statement: I reviewed the patient's lab results. CBC is without leukocytosis anemia or thrombocytopenia. No significant electrolyte derangement. No DENISE. Unremarkable LFTs and lipase. Urinalysis without evidence of infection or microscopic hematuria 10/26/24 18:08 10/26/24 18:08 Labs: Lab Results 10/26/24 10/26/24 10/26/24 Range/Units 18:08 18:19 22:40 WBC 7.1 (4.8-10.8) X10*3/uL RBC 5.17 (4.60-5.80) X10*6/uL Hgb 15.1 (14.0-18.0) g/dl Hct 44.1 (42.0-52.0) % MCV 85.3 (80.0-98.0) fL MCH 29.2 (27.0-33.0) pg MCHC 34.2 (31.0-36.0) g/dl RDW 12.9 (11.0-16.0) % Plt Count 208 (160-400) X10*3/uL MPV 9.1 L (9.4-12.4) fL Immature Gran % (Auto) 0.4 (0.0-0.4) % Neut % (Auto) 66.5 (45-73) % Lymph % (Auto) 21.1 (20-40) % [place] % (Auto) 10.8 (2-11) % Eos % (Auto) 1.1 (0-4) % Baso % (Auto) 0.1 (0-2) % Lymph # (Auto) 1.5 (1.2-4.9) X10*3/uL [place]an # (Auto) 0.8 (0.1-1.2) X10*3/uL Eos # (Auto) 0.1 (0.0-0.4) X10*3/uL Baso # (Auto) 0.0 (0.0-0.2) X10*3/uL Abs Immat Gran (auto) 0.03 (0.00-0.03) X10*3/uL Absolute Neuts (auto) 4.7 (2.0-8.3) x10*3/uL Absolute Nucleated RBC 0.000 (0.0-0.012) X10*3/uL Nucleated RBC % (auto) 0.0 (0.0-0.2) /100WBC Sodium 141 (135-145) mmol/L Potassium 4.2 (3.3-5.1) mmol/L Chloride 113 H (96-108) mmol/L Carbon Dioxide 19 L (22-29) mmol/L Anion Gap 13 (12-20) BUN 17 H (9-16) mg/dL Creatinine 0.94 (0.5-1.4) mg/dL Estim Creat Clear Calc 77.5 Estimated GFR > 60 POC Glucose 75 (60-115) mg/dL Random Glucose 79 (60-115) mg/dL Calcium 9.0 (8.4-10.2) mg/dL Magnesium 2.0 (1.6-2.6) mg/dL Total Bilirubin 0.8 (0.0-1.0) mg/dL Direct Bilirubin 0.3 (0.0-0.5) mg/dL AST 26 (5-37) U/L ALT 28 (0-40) U/L Alkaline Phosphatase 53 (39-117) U/L Total Protein 7.2 (6.5-8.0) g/dL Albumin 4.2 (3.5-5.0) g/dL Lipase 24 (8-78) U/L Urine Color Yellow Urine Appearance Clear Urine pH 6.0 (5.0-9.0) Ur Specific [place] >= 1.030 H (1.005-1.025) Urine Protein Negative (Neg-Trace) mg/dL Urine Glucose (UA) Negative (Negative) mg/dL Urine Ketones 15 (Negative) mg/dL Urine Blood Negative (Negative) Urine Nitrite Negative (Negative) Ur Leukocyte Esterase Negative (Negative) Radiology Impression Discussion of test interpretation with radiology: I have reviewed the radiologist's reading. Radiologist Impression: CT abdomen and pelvis with contrast Comparison: None Findings: No consolidation or effusion. Unremarkable gallbladder and solid organs. No urolithiasis. No bowel obstruction, pneumoperitoneum, or pneumatosis. Normal appendix. Prostate is enlarged. Bladder is thin walled without filling defect. Distal ureters are nondilated. No fluid collections or adenopathy. No vascular dilation. No acute fracture. Lower lumbar spondylosis. IMPRESSION: No acute findings. Normal appendix. No obstructive uropathy or bowel obstruction. External Record Review External record reviewed: Outpatient record Discharge Plan Discharge Clinical Impression: Abdominal pain Patient Disposition: Home, Self-Care Instructions: Abdominal Pain (ED) Additional Instructions: As discussed, your blood work today was very reassuring, there was not an abnormality to suggest an obvious cause for the pain that you are experiencing. The CT scan of your abdomen was also normal she is very reassuring. Be sure that you are staying well hydrated, although you do not have much of an appetite please consider small frequent meals throughout the day. Contact your primary care doctor to arrange for a follow-up visit within the next week. You may return to emergency department any new or worsening symptoms or concerns. Prescriptions: No Action multivitamin [Daily Multi-Vitamin] Tablet 1 tab PO DAILY Referrals: Pierce Noriega PA-C [Primary Care Provider] - Print Language: Kyrgyz
[2024-10-26 18:21] LABS: MANUAL DIFF FLAG NO
[2024-10-26 18:23] LABS: Basophils Percent Auto 0.1 % (0-2); Eosinophils Absolute Auto 0.1 X10*3/uL (0.0-0.4); Eosinophils Percent Auto 1.1 % (0-4); Hematocrit 44.1 % (42.0-52.0); Hemoglobin 15.1 g/dl (14.0-18.0); Imm Gran Abs Auto 0.03 X10*3/uL (0.00-0.03); Imm Gran Pct Auto 0.4 % (0.0-0.4); Lymphocytes Absolute Auto 1.5 X10*3/uL (1.2-4.9); Lymphocytes Percent Auto 21.1 % (20-40); Mean Corpuscular HGB Conc 34.2 g/dl (31.0-36.0); Mean Corpuscular Hemoglobin 29.2 pg (27.0-33.0); Mean Corpuscular Volume 85.3 fL (80.0-98.0); Mean Platelet Volume 9.1 fL (9.4-12.4); Monocytes Absolute Auto 0.8 X10*3/uL (0.1-1.2); Monocytes Percent Auto 10.8 % (2-11); Neutrophils Absolute Auto 4.7 x10*3/uL (2.0-8.3); Neutrophils Percent Auto 66.5 % (45-73); Platelet Count 208 X10*3/uL (160-400); Red Blood Count 5.17 X10*6/uL (4.60-5.80); Red Cell Distribution Width 12.9 % (11.0-16.0); White Blood Count 7.1 X10*3/uL (4.8-10.8)
[2024-10-26 18:24] LABS: Glucose, Whole Blood 75 mg/dL (60-115)
--- NOTE | 2024-10-26 18:33 | PC.NURSE ---
Patient had vasovagal episode, pale, diaphoretic while in chair getting blood drawn in triage. Transfered to ED stretcher by staff. Placed in trendelenburg position. Patient is alert/oriented. Labs sent for analysis, results pending. Moved into [facility] for evaluation & treatment.
[2024-10-26 18:38] LABS: Alanine Aminotransferase 28 U/L (0-40); Albumin Level 4.2 g/dL (3.5-5.0); Alkaline Phosphatase 53 U/L (39-117); Anion Gap 13 (12-20); Aspartate Amino Transferase 26 U/L (5-37); Bilirubin Direct 0.3 mg/dL (0.0-0.5); Bilirubin Total 0.8 mg/dL (0.0-1.0); Blood Urea Nitrogen 17 mg/dL (9-16); Carbon Dioxide 19 mmol/L (22-29); Chloride 113 mmol/L (96-108); Creatinine Clr Calc Pharmacy 77.5; Estimated Glomerular Filt Rate > 60; Glucose Random 79 mg/dL (60-115); Lipase 24 U/L (8-78); Potassium 4.2 mmol/L (3.3-5.1); Sodium 141 mmol/L (135-145); Total Protein 7.2 g/dL (6.5-8.0)
[2024-10-26 18:40] VITALS: BP 125/84; PULSE 72; RESP 18; TEMP 36.8; O2SAT 99
[2024-10-26] MEDS: 0.9 % Sodium Chloride 1,000 ML 999 ML IV (19:53)
[2024-10-26] MEDS: iohexoL 350 MG/ML 100 ML INFUS..BTL 85 ML IV (20:40)
[2024-10-26 22:58] LABS: Appearance Urine Clear; Color Urine Yellow; Glucose Urine UA Negative (Negative); Leukocyte Esterase Urine Negative (Negative); Nitrite Urine Negative (Negative); Specific Gravity - Urine >= 1.030 (1.005-1.025); Urine Blood Negative (Negative); Urine Ketones 15 mg/dL (Negative); Urine Protein Negative (Neg-Trace)
[2024-10-26 23:24] VITALS: BP 125/84; PULSE 72; RESP 18; TEMP 36.8; O2SAT 99
== END 2024-10-26 23:24 | disposition home or self-care (01) ==
PROVIDERS: Nurse Practitioner Family; Physician Assistant Medical; Emergency Provider Emergency Medicine Emergency Medical Services; PCP Physician Assistant
DX: R10.31 Right lower quadrant pain (principal); R10.2 Pelvic and perineal pain; Z79.899 Other long term (current) drug therapy; Z87.891 Personal history of nicotine dependence
CPT/HCPCS: 36415; 74177; 80053; 81003; 82248; 82947; 83690; 83735; 85025; 96360; 96361; 99284; Q9967

== ENCOUNTER → 2024-10-26 19:44 | Outpatient (BNV) | payer MEDICARE, SELFPAY | PROVIDERS: Emergency Provider Emergency Medicine Emergency Medical Services; PCP Physician Assistant; Visit Provider Radiology Diagnostic Radiology | DX: R10.32 Left lower quadrant pain (principal) | CPT/HCPCS: 74177 ==